=== PATIENT | male | born 1955 | race Caucasian/White ===

== ENCOUNTER 2023-04-07 05:42 | Day surgery (SDC) | payer MEDICARE, SELFPAY ==
[2023-03-24 14:15] VITALS: BMI 32.1
[2023-04-07 07:26] VITALS: BP 149/78; PULSE 79; RESP 18; TEMP 36.3; O2SAT 95
[2023-04-07] MEDS: LACTATED RINGERS 1,000 ML 150 ML IV CONT (07:34)
--- NOTE | 2023-04-07 08:18 | P.PNAN_ITS ---
Anes - Initial Pre Proc Eval Procedure: Operation Date: 04/07/23 08:45 Proposed Procedures p Colonoscopy - Smith Lilly MD Date/Time: 04/07/23 08:18 Surgeon: Smith Lilly MD Pre Op Diagnosis: hx colon polyps Patient Data Age: 67 Gender: M Height: 1.8 m Weight: 106 kg Last Vital Signs Temp 97.3 F L 04/07/23 07:26 Pulse 79 04/07/23 07:26 Resp 18 04/07/23 07:26 BP 149/78 H 04/07/23 07:26 Pulse Ox 95 04/07/23 07:26 O2 Del Method Room Air 04/07/23 07:26 Allergies Allergy/AdvReac Type Severity Reaction Status Date / Time Penicillins Allergy Hives Verified 04/07/23 07:25 Home Medications Medication Instructions Recorded Confirmed Type amlodipine 2.5 mg tablet 2.5 mg PO DAILY 03/24/23 03/24/23 History atorvastatin 20 mg tablet 20 mg PO DAILY 03/24/23 03/24/23 History levothyroxine 75 mcg tablet 75 mcg PO DAILY 03/24/23 03/24/23 History losartan 100 mg tablet 100 mg PO DAILY 03/24/23 03/24/23 History metoprolol succinate 50 mg 50 mg PO DAILY 03/24/23 03/24/23 History tablet,extended release 24 hr montelukast 10 mg tablet 10 mg PO DAILY 03/24/23 03/24/23 History Patient hx anesthesia problems: none Family hx anesthesia problems: none Results Review: All pre-operative results and documents have been reviewed as part of the pre- operative evaluation. [facility] Social History Social History Smoking status: Never smoker Alcohol intake: current Drinks per week: 1 Substance use type: does not use Living arrangements: with family Spiritual care concerns: No Anes - Eval Final PreProcedure Day of Procedure 04/07/23 08:18 Patient weight: normal Heart: regular rate and rhythm Lungs: clear to auscultation Airway: Mallampati scale class II Neurological: alert and oriented Last oral intake: >/= 8 hours ASA classification: III Emergent: no Anesthetic plan: proceed Anesthesia type and monitoring: general GIVS and standard monitoring Results Review: All pre-operative results and documents have been reviewed as part of the pre- operative evaluation. Informed Consent: The patient's anesthetic plan and its attendant risks and benefits were discussed with the patient/family/POA. Questions were solicited and answers provided to the satisfaction of the patient/family/POA.
--- NOTE | 2023-04-07 08:41 | PM.HPGS ---
History of Present Illness History of Present Illness Consent: Risks, benefits, and alternatives have been discussed and questions answered. Patient agrees to proceed with procedure. Chief complaint: hx colon polyps Narrative: Quinton Granados is a 67 year old male with last colonoscopy 7 years ago, had polyps when had first colonoscopy Review of Systems Constitutional: Constitutional: Denies headache(s) and Denies weakness Eyes: Eyes: Denies blurry vision ENT: Reports Normal hearing present, Denies headache(s) and Denies neck pain Cardiovascular: Cardiovascular: Denies chest pain and Denies dyspnea Respiratory: Respiratory: Denies dyspnea Gastrointestinal: Gastrointestinal: Reports no additional gastrointestinal complaints Genitourinary: Genitourinary: Denies dysuria Musculoskeletal: Musculoskeletal: Denies neck pain Integumentary/Breasts: Skin/Breast: Denies dry skin Neurologic: Reports Normal hearing present, Denies headache(s) and Denies weakness Psychiatric: Psychiatric: Denies anxiety Endocrine: Endocrine: Denies change in body appearance Hematologic/Lymphatic: Hematologic/Lymphatic: Denies easy bleeding Allergic/Immunologic: Allergic/Immunologic: Denies urticaria PMFSH Past Medical History Medical History (Updated 04/07/23 @ 08:42 by Smith Lilly MD) Colon polyp Social History Social History Smoking status: Never smoker Alcohol intake: current Drinks per week: 1 Substance use type: does not use Living arrangements: with family Spiritual care concerns: No Meds Home Medications and Allergies Home Medications Medication Instructions Recorded Confirmed Type amlodipine 2.5 mg tablet 2.5 mg PO DAILY 03/24/23 03/24/23 History atorvastatin 20 mg tablet 20 mg PO DAILY 03/24/23 03/24/23 History levothyroxine 75 mcg tablet 75 mcg PO DAILY 03/24/23 03/24/23 History losartan 100 mg tablet 100 mg PO DAILY 03/24/23 03/24/23 History metoprolol succinate 50 mg 50 mg PO DAILY 03/24/23 03/24/23 History tablet,extended release 24 hr montelukast 10 mg tablet 10 mg PO DAILY 03/24/23 03/24/23 History Allergies Allergy/AdvReac Type Severity Reaction Status Date / Time Penicillins Allergy Hives Verified 04/07/23 07:25 Vital Signs Vital Signs - 24 hr 04/07/23 07:26 Temperature 97.3 F L Pulse Rate 79 Respiratory Rate 18 Blood Pressure 149/78 H Pulse Oximetry 95 Oxygen Delivery Room Air Exam Const: General: comfortable and no acute distress HENMT: Face/Nose/Sinus: Normal nares present Eyes: General: appearance normal, both eyes and all related structures Neck: Neck: no JVD Resp: Auscultation: clear to auscultation bilaterally Cardio: Rate: regular rate Rhythm: regular rhythm GI: Inspection: non-distended GI Palp: Yes Soft to palpation Skin: General skin exam: normal color Neuro: General: gait normal Speech: normal speech Extrem: General: normal to inspection Psych: Mental Status: mental status grossly normal Assessment and Plan Assessment and plan (1) Colon polyp: Code(s): K63.5 - Polyp of colon Status: Acute Assessment and Plan: colonoscopy
[2023-04-07 09:01] VITALS: BP 111/76; PULSE 72; RESP 23; O2SAT 94
[2023-04-07 09:11] VITALS: BP 118/71; PULSE 62; RESP 24; O2SAT 94
[2023-04-07 09:21] VITALS: BP 116/84; PULSE 66; RESP 14; O2SAT 95
== END 2023-04-07 09:26 | disposition home or self-care (01) ==
PROVIDERS: PCP Internal Medicine; Visit Provider Internal Medicine Gastroenterology
PROC: 0DJD8ZZ Inspection of Lower Intestinal Tract, Via Natural or Artificial Opening Endoscopic (ICD-10-PCS; CPT 45378; principal; 2023-04-07 08:45)
DX: Z12.11 Encounter for screening for malignant neoplasm of colon (principal); K57.30 Diverticulosis of large intestine without perforation or abscess without bleeding; K63.5 Polyp of colon; K64.8 Other hemorrhoids
CPT/HCPCS: 45385; 88305; J2704; J7120